=== PATIENT | male | born 1960 | race Caucasian/White ===

== ENCOUNTER 2016-10-08 15:24 | Emergency (ER) | payer OTHER ==
[~2016-10-08] VITALS: Ht 152.4 cm; Wt 66.6 kg
[2016-10-08 16:22] LABS: HEMATOCRIT 40.5 % (38.0-50.0); MCH 35.9 PG (29.0-34.0); MCHC 33.6 G/DL (30.0-36.0); MCV 106.9 FL (86-99); MEAN PLAT.VOLUME 9.7 uM^3 (9.0-12.4); PLATELET COUNT 183 K/uL (156-360); RBC DIS.WIDTH-CV 13.1 % (11.8-14.6); RBC DIS.WIDTH-SD 51.9 % (39-53); RED BLOOD COUNT 3.79 M/uL (4.00-5.50); WHITE BLOOD COUNT 5.1 K/uL (4.1-10.2)
[2016-10-08 16:28] LABS: CHLORIDE 104 mEq/L (99-109); POTASSIUM 4.2 mEq/L (3.7-5.4); SODIUM 139 mEq/L (136-147)
[2016-10-08 16:30] LABS: GLUCOSE 101 mg/dL (70-99)
[2016-10-08 16:31] LABS: ANION GAP 8 MEQ/L (2-14)
[2016-10-08 16:33] LABS: GFR ESTIMATE (CALCULATED) > 59 mL/min/
[2016-10-08 16:34] LABS: UREA NITROGEN (BUN) 10 mg/dL (9-23)
[2016-10-08 17:22] LABS: EOSINOPHIL (%) 0 % (0-5); IMMATURE GRANULOCYTE COUNT 0.1 K/uL; INSTRUMENT ABS NEUTROPHIL CT 2.5 K/uL; LYMPHOCYTE COUNT 1.8 K/uL (1.0-2.8); MONOCYTE COUNT 0.7 K/uL (0-0.8); NEUTROPHIL (%) 49.6 % (45-76); NEUTROPHIL COUNT 2.5 K/uL (1.8-6.4)
[2016-10-08 17:29] LABS: INFLUENZA A VIRAL ANTIGEN POSITIVE; INFLUENZA B VIRAL ANTIGEN NEGATIVE
[2016-10-08 17:41] LABS: ADD MIUA? NO; BILIRUBIN NEGATIVE; BLOOD NEGATIVE; COLOR STRAW ((YELLOW)); GLUCOSE (STRIP) NEGATIVE; KETONES NEGATIVE; LEUKOCYTES NEGATIVE; NITRITE NEGATIVE; PROTEIN (STRIP) NEGATIVE; SPECIFIC GRAVITY 1.004 (1.000-1.030); UROBILINOGEN 0.2 MG/DL (0.2-1.0)
[2016-10-08] MEDS ORDERED: ZITHROMAX200 MG/5 M PO (20:26)
[2016-10-08] MEDS ORDERED: TESSALON PERLE100 MG PO (20:26)
[2016-10-08 21:06] VITALS: BP 118/51
== END 2016-10-08 21:10 | disposition home or self-care (01) ==
LOC: EME 15:24
PROVIDERS: Physician Assistant
DX: J10.1 Influenza due to other identified influenza virus with other respiratory manifestations (principal); J32.9 Chronic sinusitis, unspecified; J20.9 Acute bronchitis, unspecified; E78.5 Hyperlipidemia, unspecified; Q90.9 Down syndrome, unspecified
CPT/HCPCS: 71020; 71250; 80048; 81003; 83605; 85025; 87502; 99281; 99284; J7030